=== PATIENT | male | born 1980 | race Caucasian/White ===

== ENCOUNTER 2016-11-07 13:43 | Emergency (ER) | payer OTHER ==
[~2016-11-07 13:43] MED LIST: NORCO 5-325 TA1 EACH PO; ZOFRAN ODT4 MG SL
[2016-11-07 14:12] LABS: BASOPHIL 0.9 % (0-2); EOSINOPHIL 1.3 % (0-5); HCT 41.4 % (42.0-52.0); HGB 15.1 g/dl (13.2-18.0); LYMPHOCYTE 29.1 % (15-48); MCH 30.3 pg (25.0-31.0); MCHC 36.5 g/dL (32.0-36.0); MCV 83.1 fL (78.0-100.0); MONOCYTE 4.7 % (0-12); MPV 9.6 fL (6.0-9.5); PLT 325 K/uL (150-400); RBC 4.98 M/uL (4.70-6.00); RDW 12.7 % (11.5-14.0); WBC 8.6 K/uL (4.0-10.5)
[2016-11-07 14:13] LABS: BILIRUBIN NEGATIVE (NEGATIVE); BLOOD 2+ Ery/uL (NEGATIVE); CLARITY CLEAR (CLEAR); COLOR YELLOW (YELLOW); GLUCOSE (U) NORMAL (NORMAL); KETONE (U) NEGATIVE (NEGATIVE); LEUKOCYTES NEGATIVE Leu/uL (NEGATIVE); NITRITE NEGATIVE (NEGATIVE); PROTEIN NEGATIVE (NEGATIVE); UROBILINOGEN 0.2 mg/dL (0.2-1.0); pH 7.5 (5.0-9.0)
[2016-11-07 14:21] LABS: SQUAMOUS EPITHELIAL CELLS RARE
[2016-11-07 14:22] LABS: BACTERIA TRACE; URINARY WBC RARE
[2016-11-07 14:23] LABS: ALBUMIN 4.7 g/dL (3.5-5.0); BILIRUBIN - TOTAL 0.7 mg/dL (0.1-1.0); CREATININE 0.6 mg/dL (0.7-1.2); GLOBULIN (CALCULATION) 3.1 g/dL (2.2-4.2); POTASSIUM 3.8 mmol/L (3.5-5.1); TOTAL PROTEIN 7.8 g/dL (6.4-8.3)
[2016-11-07 14:23] LABS: MUCOUS TRACE
== END 2016-11-07 16:19 | disposition home or self-care (01) ==
LOC: FER 13:43
PROVIDERS: Emergency Medicine
DX: R10.9 Unspecified abdominal pain (principal); R14.0 Abdominal distension (gaseous); K86.1 Other chronic pancreatitis; Z79.899 Other long term (current) drug therapy; Z90.49 Acquired absence of other specified parts of digestive tract; Z90.89 Acquired absence of other organs
CPT/HCPCS: 36415; 80053; 81001; 82150; 83690; 85025; J2270; J2405

== ENCOUNTER 2016-12-01 14:57 | Emergency (ER) | payer OTHER ==
[2016-12-01 16:16] LABS: EOSINOPHIL 1.9 % (0-5); HCT 38.8 % (42.0-52.0); HGB 14.3 g/dl (13.2-18.0); LYMPHOCYTE 28.8 % (15-48); MCH 30.3 pg (25.0-31.0); MCHC 36.9 g/dL (32.0-36.0); MCV 82.2 fL (78.0-100.0); MONOCYTE 7.5 % (0-12); NEUTROPHIL 60.8 % (41-80); PLT 294 K/uL (150-400); RBC 4.72 M/uL (4.70-6.00); RDW 12.5 % (11.5-14.0); WBC 8.2 K/uL (4.0-10.5)
[2016-12-01 16:26] LABS: INR 1.11 (0.9-1.2); PROTHROMBIN TIME 13.9 SECONDS (11.7-14.0); PTT 25.5 SECONDS (23.2-31.4)
[2016-12-01 16:29] LABS: ALBUMIN 4.5 g/dL (3.5-5.0); BILIRUBIN - TOTAL 1.5 mg/dL (0.1-1.0); CREATININE 0.8 mg/dL (0.7-1.2); GLOBULIN (CALCULATION) 2.8 g/dL (2.2-4.2); POTASSIUM 3.4 mmol/L (3.5-5.1); TOTAL PROTEIN 7.3 g/dL (6.4-8.3)
[2016-12-01 17:54] LABS: BILIRUBIN NEGATIVE (NEGATIVE); BLOOD 2+ Ery/uL (NEGATIVE); CLARITY CLEAR (CLEAR); COLOR YELLOW (YELLOW); GLUCOSE (U) NORMAL (NORMAL); KETONE (U) NEGATIVE (NEGATIVE); LEUKOCYTES NEGATIVE Leu/uL (NEGATIVE); NITRITE NEGATIVE (NEGATIVE); PROTEIN NEGATIVE (NEGATIVE)
[2016-12-01 18:00] LABS: BACTERIA TRACE; MUCOUS MODERATE; SQUAMOUS EPITHELIAL CELLS RARE
[2016-12-01 18:05] LABS: AMPHETAMINES NEGATIVE (NEGATIVE); BARBITURATES NEGATIVE (NEGATIVE); BENZODIAZEPINES NEGATIVE (NEGATIVE); COCAINE NEGATIVE (NEGATIVE); MARIJUANA (THC) POSITIVE (NEGATIVE); METHADONE NEGATIVE (NEGATIVE); TRICYCLIC ANTIDEPRESSANT NEGATIVE (NEGATIVE)
== END 2016-12-01 18:35 | disposition home or self-care (01) ==
LOC: FER 14:57
PROVIDERS: Emergency Medicine
DX: K92.2 Gastrointestinal hemorrhage, unspecified (principal); R11.0 Nausea; F17.210 Nicotine dependence, cigarettes, uncomplicated; Z87.11 Personal history of peptic ulcer disease; Z86.39 Personal history of other endocrine, nutritional and metabolic disease; Z90.49 Acquired absence of other specified parts of digestive tract; Z90.89 Acquired absence of other organs
CPT/HCPCS: 36415; 80053; 80305; 81001; 83690; 85025; 85610; 85730; G0480; J2270; J2405; Q9967

== ENCOUNTER 2017-05-09 15:30 | Emergency (ER) | payer OTHER ==
[2017-05-09 16:04] LABS: BILIRUBIN NEGATIVE (NEGATIVE); BLOOD NEGATIVE Ery/uL (NEGATIVE); CLARITY CLEAR (CLEAR); COLOR YELLOW (YELLOW); GLUCOSE (U) NORMAL (NORMAL); KETONE (U) NEGATIVE (NEGATIVE); LEUKOCYTES NEGATIVE Leu/uL (NEGATIVE); NITRITE NEGATIVE (NEGATIVE); PROTEIN NEGATIVE (NEGATIVE); SPECIFIC GRAVITY <=1.005 (1.001-1.030); UROBILINOGEN 0.2 mg/dL (0.2-1.0)
== END 2017-05-09 21:50 | disposition home or self-care (01) ==
LOC: FER 15:30
PROVIDERS: Internal Medicine
DX: K52.9 Noninfective gastroenteritis and colitis, unspecified (principal); M51.27 Other intervertebral disc displacement, lumbosacral region; Z79.899 Other long term (current) drug therapy
CPT/HCPCS: 72131; 76870; 81003

== ENCOUNTER 2021-03-28 12:59 | Emergency (ER) | payer OTHER ==
[2021-03-28 14:14] LABS: BASOPHIL 1.2 % (0-2); EOSINOPHIL 2.2 % (0-5); HCT 40.9 % (42.0-52.0); HGB 14.3 g/dl (13.2-18.0); LYMPHOCYTE 19.6 % (15-48); MCH 29.9 pg (25.0-31.0); MCV 85.6 fL (78.0-100.0); MONOCYTE 5.9 % (0-12); MPV 9.2 fL (6.0-9.5); NEUTROPHIL 70.7 % (41-80); NRBC 0; PLT 262 K/uL (150-400); RBC 4.78 M/uL (4.70-6.00); RDW 12.5 % (11.5-14.0); WBC 10.3 K/uL (4.0-10.5)
[2021-03-28 14:46] LABS: ALBUMIN 4.1 g/dL (3.4-5.0); BUN/CREAT RATIO (CALC) 10.4 RATIO; CREATININE 0.77 mg/dL (0.67-1.17); GLOBULIN (CALCULATION) 3.6 g/dL; POTASSIUM 4.1 mmol/L (3.5-5.1); TOTAL PROTEIN 7.7 g/dL (6.4-8.2)
[2021-03-28 15:00] LABS: BILIRUBIN NEGATIVE (NEGATIVE); BLOOD NEGATIVE Ery/uL (NEGATIVE); CLARITY CLEAR (CLEAR); COLOR YELLOW (YELLOW); GLUCOSE (U) NORMAL (NORMAL); LEUKOCYTES NEGATIVE Leu/uL (NEGATIVE); NITRITE NEGATIVE (NEGATIVE); PROTEIN NEGATIVE (NEGATIVE); SPECIFIC GRAVITY 1.015 (1.001-1.030); UROBILINOGEN 0.2 mg/dL (0.2-1.0)
== END 2021-03-28 15:48 | disposition left against medical advice (07) ==
LOC: FER 12:59
PROVIDERS: Nurse Practitioner Family
DX: R10.84 Generalized abdominal pain (principal); Z87.891 Personal history of nicotine dependence
CPT/HCPCS: 36415; 80053; 81003; 82270; 85025; J1885; J2405; J7030